=== PATIENT | male | born 1945 | race Caucasian/White ===

== ENCOUNTER 2018-05-27 23:10 | Emergency (ER) | payer MEDICARE ==
[~2018-05-27] VITALS: Ht 160 cm; Wt 64.0 kg
[2018-05-28 02:15] VITALS: BP 157/79
== END 2018-05-28 03:32 | disposition left against medical advice (07) ==
LOC: ER 23:10
DX: R21 Rash and other nonspecific skin eruption (principal); Z53.21 Procedure and treatment not carried out due to patient leaving prior to being seen by health care provider